=== PATIENT | female | born 1950 | race Caucasian/White ===

== ENCOUNTER → 2022-04-17 | Outpatient (CLI) | payer MEDICARE, MEDICAID ==
[~2022-04-17] VITALS: Ht 160 cm; Wt 73.0 kg
[~2022-04-17] MED LIST: ONDA4TAB12 PO; ONDA4TAB6 PO; albuterol 2.5 MG/3 ML nebule NEB ONE
[2022-04-17 14:18] LABS: TOTAL HEMOGLOBIN 15.3 G/dl (12.0-16.0)
== END | disposition home or self-care (01) ==
LOC: RT 13:46
PROVIDERS: ATTEND Nurse Practitioner Primary Care
DX: R94.2 Abnormal results of pulmonary function studies (principal); J44.9 Chronic obstructive pulmonary disease, unspecified; R06.02 Shortness of breath
CPT/HCPCS: 85018; 94060; 94727; 94729; 94760